=== PATIENT | female | born 1965 | race Caucasian/White ===

== ENCOUNTER 2017-05-19 15:30 | Emergency (ER) | payer OTHER ==
[~2017-05-19] VITALS: Ht 172.7 cm; Wt 120.0 kg
[~2017-05-19 15:30] MED LIST: CIPR250T2 PO; IMOD2TAB PO; LACT PO; LOPE2 PO; NAPR500 PO; Z.0.NO CURRENT MEDS; ZOFR4TAB3 PO; ZOFR4TAB3 SL
[2017-05-19 15:32] VITALS: BP 161/101; PULSE 105; RESP 18; TEMP 98.4; O2SAT 98
[2017-05-19] MEDS ORDERED: MULTTAB67 PO (17:03)
[2017-05-19] MEDS ORDERED: LORA-650 PO (17:03)
[2017-05-19] MEDS ORDERED: [UNRECOGNIZED DRUG - CODE] PO (17:03)
[2017-05-19 17:09] VITALS: O2SAT 95
[2017-05-19 17:10] VITALS: BP 136/88; PULSE 90; RESP 15; O2SAT 95
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
[2017-05-19 17:49] LABS: BACTERIA, URINE RARE /hpf; BILIRUBIN, URINE NEG (NEG); BLOOD, URINE NEG (NEG); GLUCOSE,URINE NEG (NEG); KETONE, URINE NEG (NEG); MUCUS URINE FEW /lpf (OCC); NITRITE,URINE NEG (NEG); SQUAMOUS EPITHELIAL CELL URINE 1 /hpf (0-5); URINE COLOR YELLOW (YELLW/STRAW); URINE LEUKOCYTE ESTERASE NEG (NEG)
[2017-05-19 18:03] LABS: ALKALINE PHOSPHATASE 81 U/L (45-117); TOTAL BILIRUBIN ADULT 0.5 MG/DL (0.2-1.0); TOTAL PROTEIN 7.8 GM/DL (6.4-8.2)
[2017-05-19 18:04] LABS: ALBUMIN 3.9 GM/DL (3.4-5.0); ALT (GPT) 28 U/L (10-53); AST (GOT) 34 U/L (15-37); BICARBONATE 24.7 MEQ/L (21.0-32.0); BLOOD UREA NITROGEN 10 MG/DL (7-18); CALCIUM 8.9 MG/DL (8.5-10.1); CHLORIDE 107 MEQ/L (98-107); CREATININE 0.86 MG/DL (0.50-1.00); GLOMERULAR FILTRATION RATE 70 ML/MIN (>89); GLUCOSE,RANDOM 105 MG/DL (74-106); SODIUM (NA) 138 MEQ/L (136-145)
[2017-05-19] MEDS ORDERED: KETOROLAC TROMETHAMINE 60 MG/2 ML (IM) VIAL IM ONE (18:15)
--- NOTE | 2017-05-19 18:16 | RADRPT ---
EXAM DATE/TIME: 05/19/2017 17:59 [facility] COMPARISON: No previous studies available for comparison. INDICATIONS : Numbness in lips and right arm pain. RADIATION DOSE: 36.44 CTDIvol (mGy) MEDICAL HISTORY : None SURGICAL HISTORY : Cholecystectomy. ENCOUNTER: Initial ACUITY: 7 - 11 months PAIN SCALE: 5/10 LOCATION: Right arm TECHNIQUE: Multiple contiguous axial images were obtained of the head. Using automated exposure control and adj ustment of the mA and/or kV according to patient size, radiation dose was kept as low as reasonably a chievable to obtain optimal diagnostic quality images. DICOM format image data is available electro nically for review and comparison. FINDINGS: CEREBRUM: The ventricles are normal for age. No evidence of midline shift, mass lesion, hemorrhage or acute in farction. No extra-axial fluid collections are seen. POSTERIOR FOSSA: The cerebellum and brainstem are intact. The 4th ventricle is midline. The cerebellopontine angle i s unremarkable. EXTRACRANIAL: The visualized portion of the orbits is intact. SKULL: The calvaria is intact. No evidence of skull fracture. CONCLUSION: No acute intracranial abnormality is identified. Jay Jay Patel MD on May 19, 2017 at 18:13 Board Certified Radiologist. This report was verified electronically.
[2017-05-19] MEDS ORDERED: KETOROLAC TROMETHAMINE 30 MG/ML (IVP) VIAL IV PUSH ONE (18:30)
--- NOTE | 2017-05-19 18:32 | RADRPT ---
EXAM DATE/TIME: 05/19/2017 17:59 [facility] COMPARISON: No previous studies available for comparison. INDICATIONS : Numbness in lips and right arm pain. RADIATION DOSE: 23.34 CTDIvol (mGy) MEDICAL HISTORY : None SURGICAL HISTORY : Cholecystectomy. ENCOUNTER: Initial ACUITY: 7 - 11 months PAIN SCALE: 5/10 LOCATION: Right arm TECHNIQUE: Volumetric scanning of the cervical spine was performed. Multiplanar reconstructions in the sagittal, coronal and oblique axial planes were performed. Using automated exposure control and adjustment o f the mA and/or kV according to patient size, radiation dose was kept as low as reasonably achievable to obtain optimal diagnostic quality images. DICOM format image data is available electronically f or review and comparison. FINDINGS: VERTEBRAE: Normal vertebral body height. No fracture is identified. ALIGNMENT: There is mild cervical kyphosis. No anterolisthesis or retrolisthesis is present. The craniocervical junction and C1-C2 level demonstrate no acute abnormality. C2-C3: No disc herniation, canal stenosis, or neural foraminal stenosis. C3-C4: No disc herniation, canal stenosis, or neural foraminal stenosis. C4-C5: No disc herniation, canal stenosis, or neural foraminal stenosis. C5-C6: Mild decreased disc height with endplate osteophytes anteriorly and a small diffuse posterior disc os teophyte complex and left uncovertebral osteophyte. There is no canal stenosis or right neural forami nal narrowing. There is mild left neural foraminal stenosis. C6-C7: Decreased disc height with endplate osteophytes anteriorly. There is a small diffuse posterior disc o steophyte complex and a left uncovertebral osteophyte. There is no spinal canal stenosis or right lyndon ral foraminal narrowing. There is mild left neural foraminal stenosis. C7-T1: No disc herniation, canal stenosis, or neural foraminal stenosis. The visualized surrounding structures demonstrate no acute finding. CONCLUSION: There is degenerative disc disease at C5-C6 and C6-C7 with mild left neural foraminal narrowing at th leatha levels. No canal stenosis is present. No acute cervical spine abnormality is identified. Jay Jay Patel MD on May 19, 2017 at 18:27 Board Certified Radiologist. This report was verified electronically.
[2017-05-19 18:48] LABS: AUTOMATED NEUTROPHIL # 6.3 TH/MM3 (1.8-7.7); BASOPHIL # 0.1 TH/MM3 (0-0.2); BASOPHIL % 0.5 % (0.0-2.0); EOSINOPHIL # 0.2 TH/MM3 (0-0.4); EOSINOPHIL % 2.2 % (0.0-4.0); HEMATOCRIT 41.3 % (35.0-46.0); HEMOGLOBIN 14.3 GM/DL (11.6-15.3); LYMPH % 33.4 % (9.0-44.0); LYMPHOCYTE # 3.7 TH/MM3 (1.0-4.8); MEAN CELL VOLUME 90.5 FL (80.0-100.0); MEAN CORPUSCULAR HEMOGLOBIN 31.2 PG (27.0-34.0); MEAN CORPUSCULAR HGB CONC 34.5 % (32.0-36.0); MONOCYTE # 0.6 TH/MM3 (0-0.9); NEUT % 57.9 % (16.0-70.0); PLATELET COUNT 173 TH/MM3 (150-450); RED BLOOD COUNT 4.57 MIL/MM3 (4.00-5.30); RED CELL DISTRIBUTION WIDTH 12.8 % (11.6-17.2); WHITE BLOOD COUNT 10.9 TH/MM3 (4.0-11.0)
[2017-05-19] MEDS ORDERED: NAPR500 PO (19:24)
[2017-05-19] MEDS ORDERED: GABA300C5 PO (19:24)
[2017-05-19 19:47] VITALS: BP 131/74
== END 2017-05-19 19:48 | disposition home or self-care (01) ==
LOC: NEPC 15:30
DX: M25.511 Pain in right shoulder (principal); G89.29 Other chronic pain
CPT/HCPCS: 70450; 72125; 80053; 81001; 85025; 96374; 99284; J1885

== ENCOUNTER 2017-06-17 13:54 | Emergency (ER) | payer OTHER ==
[~2017-06-17] VITALS: Ht 172.7 cm; Wt 129.0 kg
[~2017-06-17 13:54] MED LIST changes: -CIPR250T2 PO; +GABA300C5 PO; -IMOD2TAB PO; -LACT PO; -LOPE2 PO; +LORA-650 PO; +MULTTAB67 PO; -Z.0.NO CURRENT MEDS; -ZOFR4TAB3 PO; -ZOFR4TAB3 SL; +[UNRECOGNIZED DRUG - CODE] PO
[2017-06-17 13:59] VITALS: BP 138/84; PULSE 94; RESP 16; TEMP 97.6; O2SAT 98
[2017-06-17] MEDS ORDERED: SODIUM CHLOR 0.9% 1000 ML INJ 1,000 ML IV SCH (14:46)
--- NOTE | 2017-06-17 14:53 | PD ---
HPI Chief Complaint: GI Complaint Time Seen by Provider: 14:46 Travel History International Travel<30 days: No Contact w/Intl Traveler<30days: No Traveled to known affect area: No History of Present Illness HPI 51-year-old female patient with history of recently diagnosed diabetes, started on metformin 3 days ago, started having nausea, vomiting, diarrhea, and general fatigue over the last 2 days. She does not know of any sick contacts, she denies any fevers, denies other issues. Modifying Factors: None Associated Signs & Symptoms: Nausea, vomiting, diarrhea, fatigue Risk Factors: Recent start of diabetes, medication PFSH Past Medical History Blood Disorders: No Anxiety: Yes Heart Rhythm Problems: No Cancer: No Cardiovascular Problems: No High Cholesterol: No Chemotherapy: No Chest Pain: No Congestive Heart Failure: No Diabetes: Yes Diminished Hearing: No Endocrine: No Genitourinary: Yes (HISTORY OF KIDNEY STONE) Immune Disorder: Yes Kidney Stones: Yes Musculoskeletal: No Neurologic: No Psychiatric: No Respiratory: No Immunizations Current: Yes Migraines: Yes Pneumonia: Yes Radiation Therapy: No Thyroid Disease: No Dilation and Curettage (D&C): Yes Past Surgical History Cholecystectomy: Yes Gynecologic Surgery: Yes (UTERINE ABLATION) Tonsillectomy: Yes Other Surgery: Yes (TONSIL/GALLBLADDER/UTERINE ABLA.CYST L.BREAST,TEETH EXTRACTION ) Social History Alcohol Use: No Tobacco Use: No (QUIT AUGUST 2016) Substance Use: No Allergies-Medications (Allergen,Severity, Reaction): Coded Allergies: Sulfa (Sulfonamide Antibiotics) (Verified Allergy, Mild, HIVES, 06/17/17) Reported Meds & Prescriptions Reported Meds & Active Scripts Active Gabapentin 300 Mg Cap 300 Mg PO TID 15 Days Reported Metformin (Metformin HCl) 500 Mg Tab 250 Mg PO DAILY With a meal Review of Systems Except as stated in HPI: all other systems reviewed are Neg Physical Exam Narrative GENERAL: Well-developed middle-age female patient currently and mild distress. Awake and oriented 3. SKIN: Focused skin assessment warm/dry. HEAD: Atraumatic. Normocephalic. EYES: Pupils equal and round. No scleral icterus. No injection or drainage. ENT: No nasal bleeding or discharge. Mucous membranes pink and moist. NECK: Trachea midline. No JVD. Supple. CARDIOVASCULAR: Regular rate and rhythm. No murmur appreciated. RESPIRATORY: No accessory muscle use. Clear to auscultation. Breath sounds equal bilaterally. GASTROINTESTINAL: Abdomen soft, non-tender, nondistended. Hepatic and splenic margins not palpable. MUSCULOSKELETAL: No obvious deformities. No clubbing. No cyanosis. No edema. NEUROLOGICAL: Awake and alert. No obvious cranial nerve deficits. Motor grossly within normal limits. Normal speech. PSYCHIATRIC: Appropriate mood and affect; insight and judgment normal. Data Data Last Documented VS Vital Signs Date Time Temp Pulse Resp B/P (MAP) Pulse Ox O2 Delivery O2 Flow Rate FiO2 06/17/17 14:55 17 99 Room Air 06/17/17 13:59 97.6 94 138/84 (102) Orders Orders Complete Blood Count With Diff (06/17/17 14:46) Comprehensive Metabolic Panel (06/17/17 14:46) Lipase (06/17/17 14:46) Urinalysis - C+S If Indicated (06/17/17 14:46) Iv Access Insert/Monitor (06/17/17 14:46) Ecg Monitoring (06/17/17 14:46) Oximetry (06/17/17 14:46) Ondansetron Inj (Zofran Inj) (06/17/17 15:00) Sodium Chlor 0.9% 1000 Ml Inj (Ns 1000 M (06/17/17 14:46) Sodium Chloride 0.9% Flush (Ns Flush) (06/17/17 15:00) Electrocardiogram (06/17/17 14:46) Magnesium (Mg) (06/17/17 14:46) Beta Hydroxybutyrate (Acetone) (06/17/17 14:46) Ed Discharge Order (06/17/17 16:14) Labs Laboratory Tests Test 06/17/17 12:10 06/17/17 14:15 Urine Color YELLOW Urine Turbidity CLEAR Urine pH 6.5 Urine Specific [place] 1.028 Urine Protein TRACE mg/dL Urine Glucose (UA) NEG mg/dL Urine Ketones NEG mg/dL Urine Occult Blood NEG Urine Nitrite NEG Urine Bilirubin NEG Urine Urobilinogen 2.0 MG/DL Urine Leukocyte Esterase TRACE Urine RBC 2 /hpf Urine WBC 1 /hpf Urine Squamous Epithelial Cells 5 /hpf Urine Bacteria OCC /hpf Urine Mucus FEW /lpf Microscopic Urinalysis Comment CULT NOT INDICATED White Blood Count 11.2 TH/MM3 Red Blood Count 4.67 MIL/MM3 Hemoglobin 14.7 GM/DL Hematocrit 41.5 % Mean Corpuscular Volume 88.8 FL Mean Corpuscular Hemoglobin 31.4 PG Mean Corpuscular Hemoglobin Concent 35.3 % Red Cell Distribution Width 12.7 % Platelet Count 177 TH/MM3 Mean Platelet Volume 8.2 FL Neutrophils (%) (Auto) 66.6 % Lymphocytes (%) (Auto) 25.8 % Monocytes (%) (Auto) 5.8 % Eosinophils (%) (Auto) 1.5 % Basophils (%) (Auto) 0.3 % Neutrophils # (Auto) 7.4 TH/MM3 Lymphocytes # (Auto) 2.9 TH/MM3 Monocytes # (Auto) 0.6 TH/MM3 Eosinophils # (Auto) 0.2 TH/MM3 Basophils # (Auto) 0.0 TH/MM3 CBC Comment DIFF FINAL Differential Comment Blood Urea Nitrogen 12 MG/DL Creatinine 0.91 MG/DL Random Glucose 139 MG/DL Total Protein 7.9 GM/DL Albumin 3.9 GM/DL Calcium Level 8.8 MG/DL Magnesium Level 1.8 MG/DL Alkaline Phosphatase 75 U/L Aspartate Amino Transf (AST/SGOT) 31 U/L Alanine Aminotransferase (ALT/SGPT) 39 U/L Total Bilirubin 0.4 MG/DL Sodium Level 140 MEQ/L Potassium Level 3.6 MEQ/L Chloride Level 103 MEQ/L Carbon Dioxide Level 28.1 MEQ/L Anion Gap 9 MEQ/L Estimat Glomerular Filtration Rate 65 ML/MIN Lipase 141 U/L B-Hydroxybutyrate 0.13 MMOL/L MDM Medical Decision Making Medical Screen Exam Complete: Yes Emergency Medical Condition: Yes Medical Record Reviewed: Yes Interpretation(s) Laboratory Tests Test 06/17/17 12:10 06/17/17 14:15 Urine Leukocyte Esterase TRACE (NEG) Urine Bacteria OCC /hpf (NONE) Urine Mucus FEW /lpf (OCC) White Blood Count 11.2 TH/MM3 (4.0-11.0) Random Glucose 139 MG/DL (74-106) Estimat Glomerular Filtration Rate 65 ML/MIN (>89) Differential Diagnosis Gastroenteritis versus gastritis versus medication side effect versus dehydration versus metabolic issues versus DKA Narrative Course Abdomen is fairly benign. Lab work did not indicate significant metabolic issues or dehydration. She was given IV fluids and Zofran in the ER. It is unclear whether the metformin that she has also started could be causing some the symptoms, and at this point, I have told her that we will hold the metformin and have her talk to primary care doctor regarding diabetes medication use. We will give her antiemetic. Return for any worsening of symptoms as needed. The plan has been discussed with her and she states understanding. Diagnosis Primary Impression: Nausea and vomiting Med/Other Pt SpecificInfo: Prescription(s) given Scripts Promethazine (Phenergan) 25 Mg Tablet 25 MG PO Q6H Y for NAUSEA OR VOMITING, #7 TAB 0 Refills Prov: Marilou Walker MD 06/17/17 Disposition: 01 DISCHARGE HOME Condition: Stable Marilou Walker MD Jun 17, 2017 14:53
[2017-06-17 14:55] VITALS: RESP 17; O2SAT 99
[2017-06-17] MEDS ORDERED: ONDANSETRON HCL 4 MG/2 ML VIAL IVP ONE (15:00)
[2017-06-17] MEDS ORDERED: SODIUM CHLORIDE 0.9% FLUSH 10 ML FLUSH IV FLUSH PRN (15:00)
[2017-06-17] MEDS ORDERED: METF500T PO (15:18)
[2017-06-17 15:38] LABS: AUTOMATED NEUTROPHIL # 7.4 TH/MM3 (1.8-7.7); BASOPHIL % 0.3 % (0.0-2.0); EOSINOPHIL # 0.2 TH/MM3 (0-0.4); EOSINOPHIL % 1.5 % (0.0-4.0); HEMATOCRIT 41.5 % (35.0-46.0); HEMOGLOBIN 14.7 GM/DL (11.6-15.3); LYMPH % 25.8 % (9.0-44.0); LYMPHOCYTE # 2.9 TH/MM3 (1.0-4.8); MEAN CELL VOLUME 88.8 FL (80.0-100.0); MEAN CORPUSCULAR HEMOGLOBIN 31.4 PG (27.0-34.0); MEAN CORPUSCULAR HGB CONC 35.3 % (32.0-36.0); MEAN PLATELET VOLUME 8.2 FL (7.0-11.0); MONO % 5.8 % (0.0-8.0); MONOCYTE # 0.6 TH/MM3 (0-0.9); NEUT % 66.6 % (16.0-70.0); PLATELET COUNT 177 TH/MM3 (150-450); RED BLOOD COUNT 4.67 MIL/MM3 (4.00-5.30); RED CELL DISTRIBUTION WIDTH 12.7 % (11.6-17.2); WHITE BLOOD COUNT 11.2 TH/MM3 (4.0-11.0)
[2017-06-17 15:51] LABS: ALKALINE PHOSPHATASE 75 U/L (45-117); ALT (GPT) 39 U/L (10-53); TOTAL BILIRUBIN ADULT 0.4 MG/DL (0.2-1.0); TOTAL PROTEIN 7.9 GM/DL (6.4-8.2)
[2017-06-17 15:52] LABS: ALBUMIN 3.9 GM/DL (3.4-5.0); AST (GOT) 31 U/L (15-37); BICARBONATE 28.1 MEQ/L (21.0-32.0); BLOOD UREA NITROGEN 12 MG/DL (7-18); CALCIUM 8.8 MG/DL (8.5-10.1); CHLORIDE 103 MEQ/L (98-107); CREATININE 0.91 MG/DL (0.50-1.00); GLOMERULAR FILTRATION RATE 65 ML/MIN (>89); GLUCOSE,RANDOM 139 MG/DL (74-106); MAGNESIUM 1.8 MG/DL (1.5-2.5); SODIUM (NA) 140 MEQ/L (136-145)
[2017-06-17 16:02] LABS: BACTERIA, URINE OCC /hpf; BILIRUBIN, URINE NEG (NEG); BLOOD, URINE NEG (NEG); GLUCOSE,URINE NEG (NEG); KETONE, URINE NEG (NEG); MUCUS URINE FEW /lpf (OCC); NITRITE,URINE NEG (NEG); PH, URINE 6.5 (5.0-8.5); SQUAMOUS EPITHELIAL CELL URINE 5 /hpf (0-5); URINE COLOR YELLOW (YELLW/STRAW); URINE LEUKOCYTE ESTERASE TRACE (NEG)
[2017-06-17] MEDS ORDERED: PROM25TA10 PO (16:16)
[2017-06-17 16:40] VITALS: BP 130/76; TEMP 97.8
--- NOTE | 2017-06-19 00:29 | EKG ---
Date Performed: 06/17/2017 Time Performed: 15:08:16 PTAGE: 51 years EKG: Sinus rhythm POSSIBLE LEFT ATRIAL ENLARGEMENT LOW QRS VOLTAGE IN PRECORDIAL LEADS POSSIBLE ANTERIOR MYOCARDIAL IN FARCTION BORDERLINE ECG PREVIOUS TRACING : 06/17/2017 15.06 DOCTOR: Tanya Tafoya Interpretating Date/Time 06/19/2017 10:31:19
== END 2017-06-17 16:40 | disposition home or self-care (01) ==
LOC: NEPE 13:54
DX: R19.7 Diarrhea, unspecified (principal); R11.2 Nausea with vomiting, unspecified; R53.83 Other fatigue; E11.9 Type 2 diabetes mellitus without complications; F41.9 Anxiety disorder, unspecified; Z87.891 Personal history of nicotine dependence; Z79.899 Other long term (current) drug therapy; Z88.2 Allergy status to sulfonamides; Z87.442 Personal history of urinary calculi
CPT/HCPCS: 80053; 81001; 82010; 83690; 83735; 85025; 93005; 96361; 96374; 99284; J2405; J7030

== ENCOUNTER 2017-08-22 16:29 | Emergency (ER) | payer OTHER ==
[~2017-08-22 16:29] MED LIST changes: -LORA-650 PO; +METF500T PO; -MULTTAB67 PO; -NAPR500 PO; +PROM25TA10 PO; -[UNRECOGNIZED DRUG - CODE] PO
[2017-08-22 16:59] VITALS: BP 153/100; PULSE 112; RESP 19; TEMP 98.3; O2SAT 97
[2017-08-22] MEDS ORDERED: SODIUM CHLOR 0.9% 1000 ML INJ 1,000 ML IV ONE (17:08)
--- NOTE | 2017-08-22 17:12 | PD ---
HPI Chief Complaint: Flank/Kidney Pain Time Seen by Provider: 17:05 Travel History International Travel<30 days: No Contact w/Intl Traveler<30days: No Traveled to known affect area: No History of Present Illness HPI c/o left flank pain radiating to llq onset at 2pm today, sudden onset, assoc with n/v. no alleviating/aggravating factors sulfa causes hives pmhx/pshx significant for j stent (lawindy), kidney stone, dm, cholecystectomy, uterine ablation PFSH Past Medical History Blood Disorders: No Anxiety: Yes Heart Rhythm Problems: No Cancer: No Cardiovascular Problems: No High Cholesterol: No Chemotherapy: No Chest Pain: No Congestive Heart Failure: No Diabetes: Yes Diminished Hearing: No Endocrine: No Genitourinary: Yes (HISTORY OF KIDNEY STONE) Immune Disorder: Yes Kidney Stones: Yes Musculoskeletal: No Neurologic: No Psychiatric: No Respiratory: No Immunizations Current: Yes Migraines: Yes Pneumonia: Yes Radiation Therapy: No Thyroid Disease: No Dilation and Curettage (D&C): Yes Past Surgical History Cholecystectomy: Yes Gynecologic Surgery: Yes (UTERINE ABLATION) Tonsillectomy: Yes Other Surgery: Yes (TONSIL/GALLBLADDER/UTERINE ABLA.CYST L.BREAST,TEETH EXTRACTION ) Social History Alcohol Use: No Tobacco Use: No (QUIT AUGUST 2016) Substance Use: No Allergies-Medications (Allergen,Severity, Reaction): Coded Allergies: Sulfa (Sulfonamide Antibiotics) (Verified Allergy, Mild, HIVES, 06/17/17) Reported Meds & Prescriptions Reported Meds & Active Scripts Active Phenergan (Promethazine HCl) 25 Mg Tablet 25 Mg PO Q6H PRN Gabapentin 300 Mg Cap 300 Mg PO TID 15 Days Reported Metformin (Metformin HCl) 500 Mg Tab 250 Mg PO DAILY With a meal Review of Systems Except as stated in HPI: all other systems reviewed are Neg General / Constitutional: No: Fever Eyes: No: Visual changes HENT: No: Headaches Cardiovascular: No: Chest Pain or Discomfort Respiratory: No: Shortness of Breath Gastrointestinal: No: Abdominal Pain Genitourinary: Positive: Flank Pain Musculoskeletal: No: Pain Skin: No Rash Neurologic: No: Weakness Psychiatric: No: Depression Endocrine: No: Polydipsia Hematologic/Lymphatic: No: Easy Bruising Physical Exam Narrative GENERAL: SKIN: Warm and dry. HEAD: Atraumatic. Normocephalic. EYES: Pupils equal and round. No scleral icterus. No injection or drainage. ENT: No nasal bleeding or discharge. Mucous membranes pink and moist. NECK: Trachea midline. No JVD. CARDIOVASCULAR: Regular rate and rhythm. RESPIRATORY: No accessory muscle use. Clear to auscultation. Breath sounds equal bilaterally. GASTROINTESTINAL: Abdomen soft, mild left lower quadrant tenderness to palpation as well as suprapubic area but without rebound/guarding or rigidity MUSCULOSKELETAL: Extremities without clubbing, cyanosis, or edema. No obvious deformities. NEUROLOGICAL: Awake and alert. No obvious cranial nerve deficits. Motor grossly within normal limits. Five out of 5 muscle strength in the arms and legs. Normal speech. PSYCHIATRIC: Appropriate mood and affect; insight and judgment normal. Data Data Last Documented VS Vital Signs Date Time Temp Pulse Resp B/P (MAP) Pulse Ox O2 Delivery O2 Flow Rate FiO2 08/22/17 17:23 99 18 08/22/17 16:59 98.3 153/100 (117) 97 Orders Orders Complete Blood Count With Diff (08/22/17 17:08) Comprehensive Metabolic Panel (08/22/17 17:08) Urinalysis - C+S If Indicated (08/22/17 17:08) Ct Abd/Pel W/O Iv Contrast (08/22/17 17:08) Ecg Monitoring (08/22/17 17:08) Iv Access Insert/Monitor (08/22/17 17:08) Ketorolac Inj (Toradol Inj) (08/22/17 17:15) Morphine Inj (Morphine Inj) (08/22/17 17:15) Sodium Chloride 0.9% Flush (Ns Flush) (08/22/17 17:15) Sodium Chlor 0.9% 1000 Ml Inj (Ns 1000 M (08/22/17 17:08) Ondansetron Odt (Zofran Odt) (08/22/17 17:15) Labs Laboratory Tests Test 08/22/17 17:12 08/22/17 17:18 White Blood Count 9.2 TH/MM3 Red Blood Count 4.79 MIL/MM3 Hemoglobin 14.7 GM/DL Hematocrit 42.9 % Mean Corpuscular Volume 89.7 FL Mean Corpuscular Hemoglobin 30.7 PG Mean Corpuscular Hemoglobin Concent 34.2 % Red Cell Distribution Width 12.9 % Platelet Count 170 TH/MM3 Mean Platelet Volume 8.1 FL Neutrophils (%) (Auto) 58.4 % Lymphocytes (%) (Auto) 30.9 % Monocytes (%) (Auto) 6.4 % Eosinophils (%) (Auto) 3.7 % Basophils (%) (Auto) 0.6 % Neutrophils # (Auto) 5.4 TH/MM3 Lymphocytes # (Auto) 2.8 TH/MM3 Monocytes # (Auto) 0.6 TH/MM3 Eosinophils # (Auto) 0.3 TH/MM3 Basophils # (Auto) 0.1 TH/MM3 CBC Comment DIFF FINAL Differential Comment Blood Urea Nitrogen 9 MG/DL Creatinine 0.94 MG/DL Random Glucose 155 MG/DL Total Protein 7.7 GM/DL Albumin 3.9 GM/DL Calcium Level 9.2 MG/DL Alkaline Phosphatase 78 U/L Aspartate Amino Transf (AST/SGOT) 27 U/L Alanine Aminotransferase (ALT/SGPT) 42 U/L Total Bilirubin 0.5 MG/DL Sodium Level 138 MEQ/L Potassium Level 3.6 MEQ/L Chloride Level 101 MEQ/L Carbon Dioxide Level 25.0 MEQ/L Anion Gap 12 MEQ/L Estimat Glomerular Filtration Rate 63 ML/MIN Urine Color YELLOW Urine Turbidity CLEAR Urine pH 7.0 Urine Specific [place] 1.019 Urine Protein TRACE mg/dL Urine Glucose (UA) NEG mg/dL Urine Ketones NEG mg/dL Urine Occult Blood NEG Urine Nitrite NEG Urine Bilirubin NEG Urine Urobilinogen 2.0 MG/DL Urine Leukocyte Esterase TRACE Urine RBC 1 /hpf Urine WBC 5 /hpf Urine Squamous Epithelial Cells 1 /hpf Urine Bacteria OCC /hpf Microscopic Urinalysis Comment CULT NOT INDICATED MDM Medical Decision Making Medical Screen Exam Complete: Yes Emergency Medical Condition: Yes Medical Record Reviewed: Yes Differential Diagnosis Colitis versus diverticulitis versus a sending cystitis versus pyelonephritis versus kidney stone Narrative Course CBC shows no leukocytosis, no anemia, normal platelet count, no left shift UA is negative for any UTI Electrolytes are all within normal limits, normal kidney liver functions. CT abdomen and pelvis shows pedunculated fibroid extending off to the left side of the uterus. Kidneys are unremarkable experience except for a parapelvic cyst on the left and there are no renal calculi or evidence of obstruction Diagnosis Primary Impression: Symptomatic fibroid Patient Instructions: General Instructions, Uterine Fibroids (ED) Scripts Naproxen DR (Naproxen EC) 375 Mg Tabdr 375 MG PO BID, #14 TAB 0 Refills Prov: Allan Gallegos MD 08/22/17 Tramadol (Ultram) 50 Mg Tab 50 MG PO Q6H Y for PAIN, #12 TAB 0 Refills Prov: Allan Gallegos MD 08/22/17 Disposition: 01 DISCHARGE HOME Condition: Stable Allan Gallegos MD August 22, 2017 17:12
[2017-08-22] MEDS ORDERED: SODIUM CHLORIDE 0.9% FLUSH 10 ML FLUSH IVF PRN (17:15)
[2017-08-22] MEDS ORDERED: MORPHINE SULFATE 4 MG/ML INJ IV PUSH ONE (17:15)
[2017-08-22] MEDS ORDERED: KETOROLAC TROMETHAMINE 30 MG/ML (IVP) VIAL IV PUSH ONE (17:15)
[2017-08-22] MEDS ORDERED: ONDANSETRON ODT 4 MG TAB PO ONE (17:15)
[2017-08-22 17:36] LABS: AUTOMATED NEUTROPHIL # 5.4 TH/MM3 (1.8-7.7); BASOPHIL # 0.1 TH/MM3 (0-0.2); BASOPHIL % 0.6 % (0.0-2.0); EOSINOPHIL # 0.3 TH/MM3 (0-0.4); EOSINOPHIL % 3.7 % (0.0-4.0); HEMATOCRIT 42.9 % (35.0-46.0); HEMOGLOBIN 14.7 GM/DL (11.6-15.3); LYMPH % 30.9 % (9.0-44.0); LYMPHOCYTE # 2.8 TH/MM3 (1.0-4.8); MEAN CELL VOLUME 89.7 FL (80.0-100.0); MEAN CORPUSCULAR HEMOGLOBIN 30.7 PG (27.0-34.0); MEAN CORPUSCULAR HGB CONC 34.2 % (32.0-36.0); MEAN PLATELET VOLUME 8.1 FL (7.0-11.0); MONO % 6.4 % (0.0-8.0); MONOCYTE # 0.6 TH/MM3 (0-0.9); NEUT % 58.4 % (16.0-70.0); PLATELET COUNT 170 TH/MM3 (150-450); RED BLOOD COUNT 4.79 MIL/MM3 (4.00-5.30); RED CELL DISTRIBUTION WIDTH 12.9 % (11.6-17.2); WHITE BLOOD COUNT 9.2 TH/MM3 (4.0-11.0)
[2017-08-22 17:42] LABS: BACTERIA, URINE OCC /hpf; BILIRUBIN, URINE NEG (NEG); BLOOD, URINE NEG (NEG); GLUCOSE,URINE NEG (NEG); KETONE, URINE NEG (NEG); NITRITE,URINE NEG (NEG); SQUAMOUS EPITHELIAL CELL URINE 1 /hpf (0-5); URINE COLOR YELLOW (YELLW/STRAW); URINE LEUKOCYTE ESTERASE TRACE (NEG)
--- NOTE | 2017-08-22 17:45 | RADRPT ---
EXAM DATE: 08/22/2017 5:38 PM EDT AGE/SEX: 51 years / Female INDICATIONS: Left flank pain, vomiting. CLINICAL DATA: This is the patient's initial encounter. Patient reports that signs and symptoms have been present for 1 day and indicates a pain score of 10/10. MEDICAL/SURGICAL HISTORY: Renal calculi. Diabetes. Cholecystectomy. Dilation and curettage. RADIATION DOSE: 19.96 CTDI (mGy) ; Patient body habitus COMPARISON: No prior [facility] exams available for comparison. TECHNIQUE: Multiple contiguous axial images were obtained through the abdomen. Images were obtained using multiple row detector helical technique. Using dose reduction techniques, radiation dose was ke pt as low as reasonably achievable to obtain optimal diagnostic quality images. FINDINGS: Lower Lungs: The visualized lower lungs are clear. Liver: The liver has a homogeneous density without space-occupying lesion. There is no dilation of th e biliary tree. The patient is status post cholecystectomy. Spleen: Homogeneous density without enlargement. Pancreas: Unremarkable without mass or calcification. Kidneys: Normal in size and shape. No evidence of a solid mass or hydronephrosis. There is a parapel el cyst in the left kidney. Adrenal Glands: Unremarkable. Aorta: The aorta and proximal iliac vessels are grossly unremarkable without aneurysmal dilation. Bowel/Mesentery: The bowel loops are grossly unremarkable. The cecum and sigmoid colon have a normal configuration. Abdominal Wall: Intact. Retroperitoneum: No evidence of adenopathy in the retrocrural, para-aortic, or deep pelvic regions. Bladder: Contours are smooth. Reproductive Organs: There is a pedunculated fibroid extending off the left side of the uterus measu ring up to approximately 3.9 cm. Inguinal: The inguinal region is unremarkable without evidence of adenopathy. Bony Structures: Unremarkable. CONCLUSION: 1. Kidneys are unremarkable in appearance except for parapelvic cyst on the left. There are no renal calculi or evidence of obstruction. 2. Apparent pedunculated fibroid extending off the left side of the uterus. Electronically signed by: iVnay Millan MD 08/22/2017 5:44 PM EDT
[2017-08-22 17:49] LABS: ALBUMIN 3.9 GM/DL (3.4-5.0); ALT (GPT) 42 U/L (10-53); AST (GOT) 27 U/L (15-37); BLOOD UREA NITROGEN 9 MG/DL (7-18); CALCIUM 9.2 MG/DL (8.5-10.1); CHLORIDE 101 MEQ/L (98-107); CREATININE 0.94 MG/DL (0.50-1.00); GLOMERULAR FILTRATION RATE 63 ML/MIN (>89); GLUCOSE,RANDOM 155 MG/DL (74-106); SODIUM (NA) 138 MEQ/L (136-145)
[2017-08-22 17:52] LABS: ALKALINE PHOSPHATASE 78 U/L (45-117); TOTAL BILIRUBIN ADULT 0.5 MG/DL (0.2-1.0); TOTAL PROTEIN 7.7 GM/DL (6.4-8.2)
[2017-08-22] MEDS ORDERED: TRAM50 PO (18:25)
[2017-08-22] MEDS ORDERED: NAPR375T4 PO (18:25)
== END 2017-08-22 19:22 | disposition home or self-care (01) ==
LOC: NEPE 16:29
DX: D25.9 Leiomyoma of uterus, unspecified (principal); E11.9 Type 2 diabetes mellitus without complications; Z79.84 Long term (current) use of oral hypoglycemic drugs
CPT/HCPCS: 74176; 80053; 81001; 85025; 96374; 96375; 99284; J1885; J2270; J7030

== ENCOUNTER 2017-08-27 14:03 | Emergency (ER) | payer OTHER ==
[~2017-08-27] VITALS: Ht 172.7 cm; Wt 123.0 kg
[~2017-08-27 14:03] MED LIST changes: +NAPR375T4 PO; +TRAM50 PO
[2017-08-27 14:22] VITALS: BP 150/82; PULSE 106; RESP 16; TEMP 98; O2SAT 97
[2017-08-27] MEDS ORDERED: ONDANSETRON ODT 4 MG TAB PO ONE (14:30)
[2017-08-27 15:28] LABS: AUTOMATED NEUTROPHIL # 6.6 TH/MM3 (1.8-7.7); BASOPHIL # 0.1 TH/MM3 (0-0.2); BASOPHIL % 0.8 % (0.0-2.0); EOSINOPHIL # 0.2 TH/MM3 (0-0.4); EOSINOPHIL % 2.4 % (0.0-4.0); HEMATOCRIT 43.5 % (35.0-46.0); LYMPH % 25.3 % (9.0-44.0); LYMPHOCYTE # 2.5 TH/MM3 (1.0-4.8); MEAN CELL VOLUME 88.4 FL (80.0-100.0); MEAN CORPUSCULAR HEMOGLOBIN 30.4 PG (27.0-34.0); MEAN CORPUSCULAR HGB CONC 34.4 % (32.0-36.0); MEAN PLATELET VOLUME 7.8 FL (7.0-11.0); MONO % 5.9 % (0.0-8.0); MONOCYTE # 0.6 TH/MM3 (0-0.9); NEUT % 65.6 % (16.0-70.0); PLATELET COUNT 177 TH/MM3 (150-450); RED BLOOD COUNT 4.92 MIL/MM3 (4.00-5.30)
[2017-08-27 15:42] LABS: ALBUMIN 4.4 GM/DL (3.4-5.0); AST (GOT) 19 U/L (15-37); BICARBONATE 25.2 MEQ/L (21.0-32.0); BLOOD UREA NITROGEN 10 MG/DL (7-18); CALCIUM 9.7 MG/DL (8.5-10.1); CHLORIDE 103 MEQ/L (98-107); CREATININE 0.89 MG/DL (0.50-1.00); GLOMERULAR FILTRATION RATE 67 ML/MIN (>89); GLUCOSE,RANDOM 136 MG/DL (74-106); SODIUM (NA) 140 MEQ/L (136-145)
[2017-08-27 15:48] LABS: ALKALINE PHOSPHATASE 83 U/L (45-117); ALT (GPT) 37 U/L (10-53); TOTAL BILIRUBIN ADULT 0.4 MG/DL (0.2-1.0); TOTAL PROTEIN 8.1 GM/DL (6.4-8.2)
[2017-08-27] MEDS ORDERED: LORazepam 2 MG/ML VIAL IM ONE (16:45)
[2017-08-27] MEDS ORDERED: MORPHINE SULFATE 4 MG/ML INJ IM ONE (16:45)
[2017-08-27] MEDS ORDERED: CYCL10TA PO (16:46)
[2017-08-27] MEDS ORDERED: ZOFR4TAB3 SL (16:46)
--- NOTE | 2017-08-27 16:54 | PD ---
HPI . Flank pain Chief Complaint: Flank/Kidney Pain Time Seen by Provider: 16:43 Travel History International Travel<30 days: No Contact w/Intl Traveler<30days: No Traveled to known affect area: No History of Present Illness HPI Patient presents with the recurrence of left flank pain. She was seen here on for same. She had a complete evaluation done that day which was negative for kidney stone or kidney infection. She was discharged home with prescriptions for Naprosyn and tramadol. She states that her pain recurred today. She took the pain medication but vomited it. She subsequently presented back for further treatment. Pain is exacerbated by movement. It is rated 10/10. Onset was 08/22. The pain has been intermittent. PFSH Past Medical History Blood Disorders: No Anxiety: Yes Heart Rhythm Problems: No Cancer: No Cardiovascular Problems: No High Cholesterol: No Chemotherapy: No Chest Pain: No Congestive Heart Failure: No Diabetes: Yes Diminished Hearing: No Endocrine: No Genitourinary: Yes (HISTORY OF KIDNEY STONE) Immune Disorder: Yes Kidney Stones: Yes Musculoskeletal: No Neurologic: No Psychiatric: No Respiratory: No Immunizations Current: Yes Migraines: Yes Pneumonia: Yes Radiation Therapy: No Thyroid Disease: No ?: Not Dilation and Curettage (D&C): Yes Past Surgical History Cholecystectomy: Yes Gynecologic Surgery: Yes (UTERINE ABLATION) Oral Surgery: Yes Tonsillectomy: Yes Other Surgery: Yes (TONSIL/GALLBLADDER/UTERINE ABLA.CYST L.BREAST,TEETH EXTRACTION ) Social History Alcohol Use: No Tobacco Use: No (QUIT AUGUST 2016) Substance Use: No Allergies-Medications (Allergen,Severity, Reaction): Coded Allergies: Sulfa (Sulfonamide Antibiotics) (Verified Allergy, Mild, HIVES, 06/17/17) Reported Meds & Prescriptions Reported Meds & Active Scripts Active Flexeril (Cyclobenzaprine HCl) 10 Mg Tab 10 Mg PO TID Zofran Odt (Ondansetron Odt) 4 Mg Tab 4 Mg SL Q6HR PRN Naproxen EC (Naproxen) 375 Mg Tabdr 375 Mg PO BID Ultram (Tramadol HCl) 50 Mg Tab 50 Mg PO Q6H PRN Phenergan (Promethazine HCl) 25 Mg Tablet 25 Mg PO Q6H PRN Gabapentin 300 Mg Cap 300 Mg PO TID 15 Days Reported Metformin (Metformin HCl) 500 Mg Tab 250 Mg PO DAILY With a meal Review of Systems Except as stated in HPI: all other systems reviewed are Neg Physical Exam Narrative GENERAL: Awake and alert and in no acute distress. SKIN: warm/dry. Normal color and turgor. HEAD: Normocephalic. Atraumatic. EYES: Pupils equal and round. Extraocular movements are intact. ENT: Mucous membranes pink and moist. NECK: Supple. Full range of motion without pain.. CARDIOVASCULAR: Regular rate and rhythm. RESPIRATORY: No accessory muscle use. Clear to auscultation. Breath sounds equal bilaterally. GASTROINTESTINAL: Abdomen soft. Nontender. Bowel sounds present. Nondistended. MUSCULOSKELETAL: Tenderness in the left paraspinous muscles of the low back. Obvious pain in the back with movement. NEUROLOGICAL: Awake and alert. No obvious cranial nerve deficits. Motor grossly within normal limits. Normal speech. PSYCHIATRIC: Appropriate mood and affect; insight and judgment normal. Data Data Last Documented VS Vital Signs Date Time Temp Pulse Resp B/P (MAP) Pulse Ox O2 Delivery O2 Flow Rate FiO2 08/27/17 14:22 98.0 106 16 150/82 (104) 97 Orders Orders Complete Blood Count With Diff (08/27/17 14:26) Comprehensive Metabolic Panel (08/27/17 14:26) Ondansetron Odt (Zofran Odt) (08/27/17 14:30) Morphine Inj (Morphine Inj) (08/27/17 16:45) Lorazepam Inj (Ativan Inj) (08/27/17 16:45) Ed Discharge Order (08/27/17 16:47) Labs Laboratory Tests Test 08/27/17 15:08 White Blood Count 10.0 TH/MM3 Red Blood Count 4.92 MIL/MM3 Hemoglobin 15.0 GM/DL Hematocrit 43.5 % Mean Corpuscular Volume 88.4 FL Mean Corpuscular Hemoglobin 30.4 PG Mean Corpuscular Hemoglobin Concent 34.4 % Red Cell Distribution Width 13.0 % Platelet Count 177 TH/MM3 Mean Platelet Volume 7.8 FL Neutrophils (%) (Auto) 65.6 % Lymphocytes (%) (Auto) 25.3 % Monocytes (%) (Auto) 5.9 % Eosinophils (%) (Auto) 2.4 % Basophils (%) (Auto) 0.8 % Neutrophils # (Auto) 6.6 TH/MM3 Lymphocytes # (Auto) 2.5 TH/MM3 Monocytes # (Auto) 0.6 TH/MM3 Eosinophils # (Auto) 0.2 TH/MM3 Basophils # (Auto) 0.1 TH/MM3 CBC Comment DIFF FINAL Differential Comment Blood Urea Nitrogen 10 MG/DL Creatinine 0.89 MG/DL Random Glucose 136 MG/DL Total Protein 8.1 GM/DL Albumin 4.4 GM/DL Calcium Level 9.7 MG/DL Alkaline Phosphatase 83 U/L Aspartate Amino Transf (AST/SGOT) 19 U/L Alanine Aminotransferase (ALT/SGPT) 37 U/L Total Bilirubin 0.4 MG/DL Sodium Level 140 MEQ/L Potassium Level 3.5 MEQ/L Chloride Level 103 MEQ/L Carbon Dioxide Level 25.2 MEQ/L Anion Gap 12 MEQ/L Estimat Glomerular Filtration Rate 67 ML/MIN [facility] Medical Decision Making Medical Screen Exam Complete: Yes Emergency Medical Condition: Yes Medical Record Reviewed: Yes (Records from 08/[address] scan showed a fibroid uterus. No evidence of kidney stone. UA was clear.) Differential Diagnosis Differential diagnosis of flank pain includes but is not limited to kidney stone , pyelonephritis, musculoskeletal pain, PE, AAA Narrative Course This patient presents with a recurrence of left flank pain. She was seen and evaluated here on 08/22 for the same thing. The evaluation was negative with the exception of finding a fibroid uterus. No further workup is necessary here today. He will be given a shot of morphine and Ativan. I will give her a prescription for Zofran and Flexeril. Diagnosis Primary Impression: Left flank pain Patient Instructions: General Instructions Departure Forms: Tests/Procedures Med/Other Pt SpecificInfo: Prescription(s) given Scripts Cyclobenzaprine (Flexeril) 10 Mg Tab 10 MG PO TID for Muscle Spasm, #15 TAB 0 Refills Prov: Lela Kelly MD 08/27/17 Ondansetron Odt (Zofran Odt) 4 Mg Tab 4 MG SL Q6HR Y for Nausea/Vomiting, #30 TAB 0 Refills Prov: Lela Kelly MD 08/27/17 Disposition: 01 DISCHARGE HOME Condition: Stable Lela Kelly MD Aug 27, 2017 16:54
== END 2017-08-27 21:01 | disposition home or self-care (01) ==
LOC: NEPD 14:03
DX: R10.9 Unspecified abdominal pain (principal); E11.9 Type 2 diabetes mellitus without complications; Z79.84 Long term (current) use of oral hypoglycemic drugs
CPT/HCPCS: 80053; 85025; 96372; 99283; J2060; J2270

== ENCOUNTER → 2017-09-03 | Outpatient (CLI) | payer OTHER ==
[~2017-09-03] MED LIST changes: +CYCL10TA PO; +ZOFR4TAB3 SL
--- NOTE | 2017-09-03 13:01 | RADRPT ---
EXAM DATE: 09/03/2017 12:56 PM EDT AGE/SEX: 51 years / Female INDICATIONS: Pelvic pain. CLINICAL DATA: This is the patient's initial encounter. Patient reports that signs and symptoms have been present for 2 weeks and indicates a pain score of 8/10. MEDICAL/SURGICAL HISTORY: Diabetes. Migraine. Pneumonia. Anxiety. Tonsillectomy. Cholecystect carmen. Uterine ablation. Dilation and curettage. Renal stent. Left breast cyst removal. COMPARISON: No prior exams available for comparison. MEASUREMENTS: Uterus:__7.3 x 3.9 x 3.1 cm Endometrial Stripe:__3 mm Right Ovary:__ n/a Left Ovary:__ n/a FINDINGS: Uterus: There are multiple masses the largest one measures 3.4 cm most likely multiple fibroids. Nab othian cysts are present with some calcifications in the region of the lower cervix chronic in nature . Right Ovary: Not visualized. Left Ovary: Not visualized Other: There is a trace of fluid within the cul-de-sac. CONCLUSION: 1. Uterine fibroids. Electronically signed by: Michael Morris MD 09/03/2017 1:00 PM EDT
== END ==
LOC: HRAD 08:43
PROVIDERS: ATTEND Family Medicine
DX: D25.9 Leiomyoma of uterus, unspecified (principal); R10.9 Unspecified abdominal pain
CPT/HCPCS: 76830; 76856

== ENCOUNTER → 2017-09-20 | Outpatient (CLI) | payer OTHER ==
--- NOTE | 2017-09-20 10:23 | RADRPT ---
EXAM DATE: 09/20/2017 10:06 AM EDT AGE/SEX: 51 years / Female INDICATIONS: Abdominal pain. CLINICAL DATA: This is the patient's initial encounter. Patient reports that signs and symptoms have been present for 1 month and indicates a pain score of 2/10. MEDICAL/SURGICAL HISTORY: . Migraines. Pneumonia. Renal calculi. Diabetes. Anxiety. Cholecyste ctomy. Tonsillectomy. Uterine ablation. Left breast cyst removal. Dilation and curettage. COMPARISON: [facility] – [place], CT ABDOMEN & PELVIS W/O CONTRAST, 08/22/2017. . MEASUREMENTS: Liver:__ 16.0 cm. Common Bile Duct:___ 7mm. Right Kidney:___10.3 x 4.8 x 5.4 cm. Left Kidney:___12.2 x 5.7 x 6.0 cm. Spleen:___12.7 cm. FINDINGS: Limited exam due to patient's body habitus. Liver: Increased echotexture without focal lesion or ductal dilation. Portal Vein: Hepatopedal flow seen in portal vein. Common Duct: No intraluminal mass or stone visualized. Gallbladder: Surgically absent. Pancreas: Diffusely increased pancreatic echogenicity. Right Kidney: Normal echotexture and cortical thickness. No mass or hydronephrosis. Left Kidney: 3.0 x 2.8 x 3.1 cm anechoic avascular cyst in the central left kidney consistent with a parapelvic cyst. Otherwise, normal echotexture and cortical thickness. No hydronephrosis. Ascites: None Pleural Effusion: None Spleen: No focal lesion. Aorta: Non aneurysmal. IVC: Within normal limits Other: None. CONCLUSION: 1. Diffusely increased pancreatic echogenicity which may reflect sequela of pancreatitis or pancreat ic fatty replacement. 2. 3 cm left renal cyst. 3. Diffusely increased hepatic echogenicity without evidence for volume loss most consistent with he patic steatosis or medical liver disease. Electronically signed by: Phillip Templeton MD 09/20/2017 10:22 AM EDT
== END ==
LOC: HRAD 08:56
PROVIDERS: ATTEND Family Medicine
DX: N20.2 Calculus of kidney with calculus of ureter (principal); R10.9 Unspecified abdominal pain
CPT/HCPCS: 76700